=== PATIENT | male | born 1985 | race Caucasian/White ===

== ENCOUNTER → 2018-05-22 09:38 | Outpatient (CLI) | payer BC, SELFPAY ==
[2018-05-22 10:24] LABS: Hematocrit 45.2 % (41-53); Hemoglobin 15.3 g/dL (13.5-17.5); Mean Corpuscular HGB Conc 33.8 % (30-36); Mean Corpuscular Hemoglobin 29.7 PG (26-34); Mean Corpuscular Volume 87.8 fL (80-100); Platelet Count 157 X10^3/uL (150-400); Red Blood Cell Count 5.15 X10^6/uL (4.5-5.9); Red Cell Distribution Width 13.5 % (11.6-14.8); White Blood Cell Count 5.3 X10^3/uL (4.5-11.0)
== END ==
PROVIDERS: PCP Nurse Practitioner Family; Visit Provider Nurse Practitioner Family
DX: R10.32 Left lower quadrant pain (principal)
CPT/HCPCS: 36415; 85027

== ENCOUNTER → 2018-05-23 08:22 | Outpatient (CLI) | payer BC, SELFPAY ==
--- NOTE | 2018-05-23 09:21 | DI.CT.S_ITS ---
PROCEDURE: CT PELVIS W CON INDICATIONS: Left inguinal pain TECHNIQUE: After the administration of oral contrast and intravenous contrast, 5 mm thick sections acquired from the iliac crests to the symphysis. 5 mm thick coronal and sagittal reformats were acquired. For radiation dose reduction, the following was used: automated exposure control, adjustment of mA and/or kV according to patient size. COMPARISON: None. FINDINGS: Image quality: Excellent. Peritoneum and bowel: Contrast enhanced bowel loops demonstrate normal wall thickness and caliber. No free fluid or air. Mild sigmoid diverticulosis is seen, no CT evidence of acute diverticulitis. Genitourinary: Mild diffuse bladder wall thickening is seen. Nodes and vessels: No iliac, pelvic, or inguinal adenopathy. Iliac vessels demonstrate normal size and enhancement. Bones: No suspicious bony lesions. No discrete bladder wall mass. Miscellaneous: The small right inguinal hernia is seen containing fat only. IMPRESSION: 1. Small right inguinal hernia containing fat only. No left-sided hernia. No bowel obstruction. No free fluid or free air. No inguinal lymphadenopathy. 2. Mild diffuse bladder wall thickening. No discrete bladder wall mass. Cystitis cannot be excluded. Dictated by: Hernan Wood M.D. on 05/23/2018 at 10:16 Approved by: Hernan Wood M.D. on 05/23/2018 at 10:21
[2018-05-23 12:42] LABS: Alanine Aminotransferase 96 IU/L (21-72); Albumin 4.3 g/dL (3.5-5.0); Albumin Globulin Ratio 1.9 (1.0-2.8); Alkaline Phosphatase 72 U/L (38-126); Aspartate Aminotransferase 36 IU/L (17-59); BUN Creatinine Ratio 16.3 (6-22); Bilirubin Total 0.5 mg/dL (0.2-1.3); Blood Urea Nitrogen 13 mg/dL (9-20); Calcium 9.5 mg/dL (8.4-10.2); Carbon Dioxide 27 mmol/L (22-32); Chloride 100 mmol/L (98-107); Estimated Glomerular Filt Rate > 60.0 mL/min (>60); Globulin 2.3 g/dL (1.7-4.1); Glucose 79 mg/dL (70-100); HEMOLYSIS < 15 (0-50); Potassium 4.3 mmol/L (3.4-5.1); Sodium 139 mmol/L (137-145); Total Protein 6.6 g/dL (6.3-8.2)
== END ==
PROVIDERS: PCP Nurse Practitioner Family; Visit Provider Nurse Practitioner Family
DX: R10.32 Left lower quadrant pain (principal); K40.90 Unilateral inguinal hernia, without obstruction or gangrene, not specified as recurrent
CPT/HCPCS: 72193; 80053; Q9967

== ENCOUNTER 2018-06-05 11:40 | Day surgery (SDC) | payer BC, SELFPAY ==
[2018-06-04 08:13] VITALS: BMI 34.0
[2018-06-05] VITALS (9 sets, daily range): BP systolic 98–132; BP diastolic 56–87; PULSE 71–94; RESP 8–16; TEMP 36.2–37.1; O2SAT 92–97; BMI 32.5
--- NOTE | 2018-06-05 12:02 | PM.PREOP ---
Pre-operative Note Interval Note History & Physical reviewed/Exam performed by Physician: Yes Changes to H&P: No
--- NOTE | 2018-06-05 12:16 | SUR.OPER ---
Supine on padded OR bed, head on pillow, arms secured on padded arm boards at <90 degrees abduction, legs uncrossed, safety belt at thigh, tape over blanket over lower legs.
[2018-06-05] MEDS: LACTATED RINGERS 1,000 ML 42 ML IV (12:21)
[2018-06-05] MEDS: CEFAZOLIN 2 GM/100 ML FROZ.PIGGY IV (12:27)
[2018-06-05] MEDS: BUPIVACAINE 0.5% (PF) VIAL 30 ML INJ (13:01)
[2018-06-05] MEDS: LACTATED RINGERS 1,000 ML 100 ML IV (13:41)
[2018-06-05] MEDS: fentaNYL 100 MCG/2 ML INJ 50 MCG IV ×2 (14:13→14:22)
--- NOTE | 2018-06-05 14:23 | P.OP_ITS ---
Operative Date/Time/Diagnoses Date of procedure: 06/05/18 Time of procedure: 14:01 Pre-op diagnosis: Right inguinal hernia reducible Post-op diagnosis: same (Large lipoma of the cord most likely the source of findings. Also had weakness of the floor consistent with a direct hernia.) Procedure & Clinicians Procedure: Repair right inguinal hernia with plug and patch technique Same procedure as scheduled: Yes Indications: Symptomatic hernia Surgeon: Juan Stallworth Click Yes if Unassisted: Yes Anesthesia Type: General Operative Notes Findings: Large lipoma of the cord. Weakness of the floor Closure Type: primary Specimen(s): none sent Prosthetic devices, grafts, tissues, transplants, or devices: Mesh Estimated Blood Loss (mL): 15 Procedure in detail: The patient was placed supine on the operating room table and underwent general LMA anesthesia. He was prepped and draped in the usual fashion. A transverse incision was made overlying the internal ring and carried down to the level of the external oblique. The external oblique was opened parallel with its fibers through the external ring. The cord structures were elevated. The cremaster was opened proximally and search made for an indirect sac. there was a large lipoma of the cord. It was dissected off of surrounding structures and suture ligated at the level the deep epigastric vessels. Distal portion was removed. The stump was allowed to retract. I examined the remainder of the contents of the cord but could not identify an indirect sac. A small plug was placed in the defect created by the lipoma and tacked into place with interrupted 0 Ethibond suture.. The floor was examined and was found to be somewhat weakened.. A patch was placed across the floor and tacked at the pubic tubercle, the posterior lamella of the anterior rectus sheath, the ilioinguinal ligament, and superior lateral to the cord. The opening was modified as necessary to prevent tight constriction of the cord. Sutures of 0 Tycron were used to secure the mesh. The external oblique was closed with a running 3 0 Vicryl. The subcu was closed with interrupted 3 0 Vicryl. The skin was closed with a running 4 0 Vicryl subcuticular stitch and Steri-Strips. Dressing was ap plied, the patient was awakened, and the patient was taken to the recovery area in good condition. Complications: none Condition: stable Disposition: PACU Plan for aftercare: Follow-up in office
== END 2018-06-05 15:06 | disposition home or self-care (01) ==
PROVIDERS: PCP Nurse Practitioner Family; Visit Provider Specialist
PROC: (CPT 49505; principal; 2018-06-05 12:45)
DX: K40.90 Unilateral inguinal hernia, without obstruction or gangrene, not specified as recurrent (principal); D17.6 Benign lipomatous neoplasm of spermatic cord; F17.210 Nicotine dependence, cigarettes, uncomplicated
CPT/HCPCS: 49505; C1781; J0690; J1100; J2405; J2704; J3010

== ENCOUNTER → 2019-09-02 13:51 | Outpatient (CLI) | payer BC, SELFPAY ==
[2019-09-02 14:31] LABS: Add Manual Diff / Slide Review NO; Basophils Absolute Auto 100 /uL (0-100); Eosinophils Absolute Auto 200 /uL (0-450); Hematocrit 44.7 % (41-53); Hemoglobin 15.5 g/dL (13.5-17.5); Lymphocytes Absolute Auto 1700 /uL (1100-4500); Mean Corpuscular HGB Conc 34.7 % (30-36); Mean Corpuscular Hemoglobin 31.9 PG (26-34); Mean Corpuscular Volume 92.1 fL (80-100); Monocytes Absolute Auto 400 /uL (0-900); Monocytes Percent Auto 7.9 % (3-14); Neutrophils Absolute Auto 3200 /uL (1500-7000); Neutrophils Percent Auto 57.1 % (50-75); Platelet Count 179 X10^3/uL (150-400); Red Blood Cell Count 4.86 X10^6/uL (4.5-5.9); White Blood Cell Count 5.6 X10^3/uL (4.5-11.0)
[2019-09-02 14:43] LABS: Monotest Negative (Negative)
[2019-09-02 14:44] LABS: Alanine Aminotransferase 40 IU/L (<50); Albumin 4.7 g/dL (3.5-5.0); Albumin Globulin Ratio 1.7 (1.0-2.8); Alkaline Phosphatase 70 U/L (38-126); Aspartate Aminotransferase 37 IU/L (17-59); BUN Creatinine Ratio 15.6 (6-22); Bilirubin Total 0.9 mg/dL (0.2-1.3); Blood Urea Nitrogen 12 mg/dL (9-20); Calcium 9.6 mg/dL (8.4-10.2); Carbon Dioxide 28 mmol/L (22-32); Chloride 107 mmol/L (98-107); Estimated Glomerular Filt Rate > 60.0 mL/min (>60); Globulin 2.7 g/dL (1.7-4.1); Glucose 102 mg/dL (70-100); HEMOLYSIS < 15 (0-50); Potassium 4.8 mmol/L (3.4-5.1); Sodium 140 mmol/L (137-145); Total Protein 7.4 g/dL (6.3-8.2)
[2019-09-02 14:48] LABS: C-Reactive Protein Quant < 0.5 mg/dL (<1.0)
[2019-09-02 14:49] LABS: Erythrocyte Sedimentation Rate 2 MM/HR (0-15)
== END ==
PROVIDERS: PCP Nurse Practitioner Family; Referring Provider Physician Assistant; Visit Provider Physician Assistant
DX: J02.9 Acute pharyngitis, unspecified (principal); R07.0 Pain in throat
CPT/HCPCS: 36415; 80053; 84443; 85025; 85651; 86140; 86318; 87070; 87147

== ENCOUNTER → 2020-05-26 07:57 | Outpatient (CLI) | payer BC, SELFPAY ==
[2020-05-26] MEDS: COVID-19 VACC, Ad26(JANSSEN)/PF 0.5 ML IM (08:01)
== END ==
PROVIDERS: PCP Nurse Practitioner Family; Visit Provider Internal Medicine
DX: Z23 Encounter for immunization (principal)
CPT/HCPCS: 0031A; 91303

== ENCOUNTER 2022-01-11 06:29 | Emergency (ER) | payer BC, SELFPAY ==
[2022-01-11 06:37] VITALS: BP 185/89; PULSE 80; RESP 16; TEMP 36.8; O2SAT 100; BMI 35.9
--- NOTE | 2022-01-11 06:54 | ED.LOWEXIN ---
HPI - Extremity Injury (Lower) General Chief Complaint: Extremity Injury, Lower Stated Complaint: index toe on right foot had blister that popped Time Seen by Provider: 01/11/22 06:43 Source: patient Mode of arrival: Ambulatory History of Present Illness HPI Narrative: 36-year-old male nonsmoker with noncontributory medical history presents for evaluation of a blister that had developed between the great toe and 2nd toe on his right foot over the course of a work shift. He states the blister ruptured and swelling has improved, pain has improved but he wants to be sure he is at low risk for infection. He is not diabetic. He denies any fever chills nor nausea or vomiting. Related Data Home Medications Medication Instructions Recorded Confirmed pdqezwdl-akqbmpss-jaeue acid 400 2 tab PO .QD 05/21/18 10/20/19 mcg-vit K 20 mcg-lycop 300 mcg tablet (One-A-Day Men's Multivitamin) Allergies Allergy/AdvReac Type Severity Reaction Status Date / Time No Known Drug Allergies Allergy Verified 10/20/19 13:56 Review of Systems Review of Systems Narrative: GENERAL: Denies chills, fatigue, malaise, fever, sweats. HEENT: Denies sinus pain, ear pain, sore throat, difficulty swallowing, dizziness. RESPIRATORY: Denies dyspnea, cough, wheezing, hemoptysis, sputum. CARDIOVASCULAR: Denies chest pain, palpitations, orthopnea, edema, GASTROINTESTINAL: Denies nausea, vomiting, abdominal pain, diarrhea, constipation, melena. : Denies dysuria, frequency, incontinence, hematuria, urinary retention. MUSCULOSKELETAL: denies weakness, joint pain, or bony pain SKIN: See HPI NEUROLOGIC: Denies weakness, headache, numbness, change in speech, confusion, seizures, incoordination. PSYCHIATRIC: No concerning psychosocial issues. 12 point review of systems is negative except for those stated above Patient History Medical History Daily consumption of alcohol Surgical History Anesthesia Inguinal hernia (~2004) Family History Father Diabetes mellitus Heart disease Stroke Grandfather Heart disease Grandmother Cancer Grandfather Heart disease Grandmother Cancer Social History Smoking Status: Current every day smoker Tobacco: How many years used: 15 quit status: considering quitting second hand exposure: No alcohol intake: current substance use type: does not use Smoking Status: Current every day smoker alcohol intake frequency: a few times a week Substance Use Type: does not use Exam Narrative Exam Narrative: GEN: AOx3 and in mild distress EYES: Pupils are equal, round, and reactive to light and accommodation. Extraoccular muscles are intact bilaterally. There is no subconjunctival hemorrhage or exudate. CHEST: Lungs are clear to auscultation bilaterally and free of wheezes, rales, or rhonchi. Heart rate is regular rhythm, there are no murmurs, clicks, rubs, or gallops. There is no chest wall tenderness. ABD: Abdomen is soft and nontender. There is no guarding or rebound. Bowel sounds are normal in all 4 quadrants. There is no mass or organomegaly. EXT: Small ruptured blister on 2nd toe of right foot, no surrounding erythema or other drainage, no lymphangitis, very minimal swelling if any Full painless ROM of all extremities with no loss of sensation or strength. SKIN: Warm, pink, and dry. No erythema or rash Initial Vital Signs Initial Vital Signs: Vital Signs Temperature 98.2 F 01/11/22 06:37 Pulse Rate 80 01/11/22 06:37 Respiratory Rate 16 01/11/22 06:37 Blood Pressure 185/89 H 01/11/22 06:37 Pulse Oximetry 100 01/11/22 06:37 Oxygen Delivery Method 01/11/22 06:37 Course Orders Ordered: Discontinued Medications Bacitracin (Bacitracin Oint 0.9 Gm Pckt) 1 applic TOP NOW ONE Stop: 01/11/22 06:59 Last Admin: 01/11/22 07:04 Dose: 1 applic Documented By: AP Vital Signs Vital signs: Vital Signs - 8 hr 01/11/22 06:37 Temperature 98.2 F Pulse Rate 80 Respiratory Rate 16 Blood Pressure 185/89 H Pulse Oximetry 100 Oxygen Delivery Method Room Air Discharge Plan Departure Patient Disposition: Home Clinical Impression: Wound, open, foot Instructions: Skin Wound Activity Restrictions/Additional Instructions: *You have been diagnosed with [open wound right foot. As we discussed there is no sign of infection at this time, please apply Neosporin and dry bandages for the next few days while this heals.] *What to do: *Please continue to take your regular medications as directed. [ ] New medication prescriptions sent to your pharmacy: [ ] [ ] New medication written as a paper prescription [ ] No new medications given *Please follow up with your primary care provider in 2-3 days, call for an appointment. Let them know you were seen in the Emergency Department and that we ask that you be seen in follow up. We will electronically transmit a record of today's note if your PCP is in our system *Return to Emergency Department if you should have any new, worsening or concerning symptoms Prescriptions: No Action One-A-Day Men's Multivitamin 400-20-300 mcg tablet 2 tab PO .QD Referrals: Sarah Mckeon ARNP [Primary Care Provider] - Visit Report Forms: Patient Portal/API
[2022-01-11] MEDS: BACITRACIN OINT 0.9 GM PCKT 1 APPLIC TOP (07:04)
[2022-01-11 07:11] VITALS: BP 160/75; PULSE 75; RESP 16; O2SAT 100
== END 2022-01-11 07:11 | disposition home or self-care (01) ==
PROVIDERS: Emergency Provider Emergency Medicine; PCP Nurse Practitioner Family
DX: S91.301A Unspecified open wound, right foot, initial encounter (principal); X58.XXXA Exposure to other specified factors, initial encounter
CPT/HCPCS: 99282

== ENCOUNTER → 2022-03-20 11:36 | Outpatient (CLI) | payer BC, SELFPAY ==
[2022-03-20 12:56] LABS: Hematocrit 44.8 % (41-53); Hemoglobin 15.7 g/dL (13.5-17.5); Mean Corpuscular Hemoglobin 30.6 PG (26-34); Mean Corpuscular Volume 87.5 fL (80-100); Platelet Count 193 X10^3/uL (150-400); Red Blood Cell Count 5.12 X10^6/uL (4.5-5.9); Red Cell Distribution Width 13.5 % (11.6-14.8); White Blood Cell Count 5.4 X10^3/uL (4.5-11.0)
[2022-03-20 13:20] LABS: TSH w/ Reflex to FT4 1.98 uIU/mL (0.47-4.68)
[2022-03-20 13:35] LABS: Alanine Aminotransferase 46 IU/L (<50); Albumin 4.8 g/dL (3.5-5.0); Albumin Globulin Ratio 1.5 (1.0-2.8); Alkaline Phosphatase 70 U/L (38-126); Aspartate Aminotransferase 34 IU/L (17-59); BUN Creatinine Ratio 10.6 (6-22); Bilirubin Total 0.6 mg/dL (0.2-1.3); Blood Urea Nitrogen 11 mg/dL (9-20); Calcium 9.2 mg/dL (8.4-10.2); Carbon Dioxide 23 mmol/L (22-32); Chloride 105 mmol/L (98-107); Estimated Glomerular Filt Rate > 60 mL/min (>60); Globulin 3.2 g/dL (1.7-4.1); Glucose 95 mg/dL (70-100); HEMOLYSIS < 15 (0-50); Potassium 3.9 mmol/L (3.4-5.1); Sodium 144 mmol/L (137-145)
== END ==
PROVIDERS: PCP Nurse Practitioner Family; Referring Provider Nurse Practitioner Family; Visit Provider Nurse Practitioner Family
DX: I10 Essential (primary) hypertension (principal)
CPT/HCPCS: 36415; 80053; 84443; 85027

== ENCOUNTER 2022-08-28 09:24 | Emergency (ER) | payer BC, SELFPAY ==
[2022-08-28] VITALS (13 sets, daily range): BP systolic 158–216; BP diastolic 86–125; PULSE 61–84; RESP 8–23; TEMP 36.7; O2SAT 93–99; BMI 35.9
--- NOTE | 2022-08-28 09:31 | DI.RAD.S_ITS ---
PROCEDURE: XR CHEST 1V INDICATIONS: chest pain TECHNIQUE: One view of the chest was acquired. COMPARISON: None. FINDINGS: Surgical changes and devices: None. Lungs and pleura: Lungs are clear. No pleural effusions or pneumothorax. Mediastinum: Mediastinal contours appear normal. Heart size is normal. Bones and chest wall: No suspicious bony lesions. Overlying soft tissues appear unremarkable. IMPRESSION: No acute cardiopulmonary disease. Dictated by: Reyna Van M.D. on 08/28/2022 at 9:08 Approved by: Reyna Van M.D. on 08/28/2022 at 9:09
[2022-08-28 09:37] LABS: Add Manual Diff / Slide Review NO; Basophils Absolute Auto 100 /uL (0-100); Basophils Percent Auto 1.3 % (0-2); Eosinophils Absolute Auto 200 /uL (0-450); Eosinophils Percent Auto 3.1 % (2-4); Hematocrit 41.5 % (41-53); Hemoglobin 14.7 g/dL (13.5-17.5); Lymphocytes Absolute Auto 1700 /uL (1100-4500); Lymphocytes Percent Auto 34.3 % (25-40); Mean Corpuscular HGB Conc 35.3 % (30-36); Mean Corpuscular Hemoglobin 30.5 PG (26-34); Mean Corpuscular Volume 86.2 fL (80-100); Monocytes Absolute Auto 500 /uL (0-900); Monocytes Percent Auto 10.3 % (3-14); Neutrophils Absolute Auto 2500 /uL (1500-7000); Platelet Count 167 X10^3/uL (150-400); Red Blood Cell Count 4.82 X10^6/uL (4.5-5.9); Red Cell Distribution Width 12.7 % (11.6-14.8); White Blood Cell Count 4.8 X10^3/uL (4.5-11.0)
[2022-08-28] MEDS: ASPIRIN 81 MG CHEW TAB 324 MG PO (09:37)
[2022-08-28 09:45] LABS: Prothrombin Time 11.1 SECONDS (10.1-12.7)
[2022-08-28 09:47] LABS: PTT Partial Thromboplastin Tim 35 SECONDS (26-36)
[2022-08-28 09:55] LABS: Alanine Aminotransferase 42 IU/L (<50); Albumin 4.7 g/dL (3.5-5.0); Albumin Globulin Ratio 1.6 (1.0-2.8); Alkaline Phosphatase 78 U/L (38-126); Aspartate Aminotransferase 30 IU/L (17-59); BUN Creatinine Ratio 11.5 (6-22); Bilirubin Total 0.9 mg/dL (0.2-1.3); Blood Urea Nitrogen 9 mg/dL (9-20); Calcium 9.2 mg/dL (8.4-10.2); Carbon Dioxide 29 mmol/L (22-32); Chloride 101 mmol/L (98-107); Creatine Kinase 266 U/L (55-170); Estimated Glomerular Filt Rate > 60 mL/min (>60); Glucose 102 mg/dL (70-100); HEMOLYSIS < 15 (0-50); Lipase 41 U/L (23-300); Sodium 138 mmol/L (137-145); Total Protein 7.7 g/dL (6.3-8.2)
--- NOTE | 2022-08-28 10:01 | ED_ITS ---
HPI - General Adult General Chief complaint: Chest Pain Stated complaint: high BP/intense head swells T-1 Time Seen by Provider: 08/28/22 09:34 Source: patient Mode of arrival: Ambulatory History of Present Illness HPI narrative: This is a 37-year-old male with a primary hypertension and chronic alcohol use, patient presents with complaint of feeling a wish and feeling through his head and felt dizzy yesterday during a meeting, he had a similar episode twice today during the meeting as well. He states no headache, no vision changes, no chest pain or shortness of breath, no nausea or vomiting. Abdominal back or flank pain. Patient states he has been a little bit constipated lately because he is not eating as much. No swelling or skin changes. Patient states no swelling in extremities. He takes 20 mg lisinopril he did take 40 mg this morning with the direction of his physician because he was elevated 170s over 110s yesterday and was 190 range at the meeting. Patient states he is had prior hernia repair. Uses nicotine but does not smoke, does drink alcohol states quite a bit daily, no marijuana or illicit. Patient does note he had a quad shot, lactate and MiraLax today this morning. Did take his lisinopril earlier today. States he drank his normal amount of alcohol last night does not feel like he is having any withdrawal. Does note he gained a significant amount of weight in the last year has been trying to lose weight but got up to 310 lb and is now down to 95 but still attempting to lose weight. He does note a little bit of pill stuck sensation daily with he takes his lisinopril. Related Data Home Medications Medication Instructions Recorded Confirmed zuzheoti-cxmlhyaw-fartv acid 400 2 tab PO .QD 05/21/18 05/08/22 mcg-vit K 20 mcg-lycop 300 mcg tablet (One-A-Day Men's Multivitamin) ashwagandha root extract 300 mg mg PO 03/20/22 05/08/22 capsule turmeric 400 mg capsule mg PO 03/20/22 05/08/22 Previous Rx's Medication Instructions Recorded lisinopril 20 mg tablet 20 mg PO DAILY #90 tabs 05/18/22 Allergies Allergy/AdvReac Type Severity Reaction Status Date / Time No Known Drug Allergies Allergy Verified 08/28/22 09:31 Review of Systems Review of Systems ROS Unobtainable: All systems reviewed & are unremarkable except as noted in HPI and below Patient History Medical History Daily consumption of alcohol Essential hypertension Left inguinal pain Surgical History Anesthesia Inguinal hernia (~2004) Family History Father Diabetes mellitus Heart disease Stroke Grandfather Heart disease Grandmother Cancer Grandfather Heart disease Grandmother Cancer Social History Smoking Status: Current every day smoker Tobacco: How many years used: 20 Smokeless tobacco user: other (nicotine pouch) quit status: quit date established second hand exposure: No alcohol intake: current (2 drinks per day ) substance use type: does not use and marijuana (teenager ) Smoking Status: Current every day smoker tobacco type: vaping alcohol intake frequency: 3 or more drinks per day Substance Use Type: does not use Exam Narrative Exam Narrative: GENERAL: Alert and oriented x three, male in mild distress. HEENT: Head normocephalic, atraumatic, EOMI, pupils reactive, face symmetric, moist mucous membranes NECK: Supple, full range of motion CARDIOVASCULAR: Regular rate and rhythm without murmurs, rubs or gallops. No JVD. No swelling bilateral lower extremities. RESPIRATORY: Breath sounds equal bilaterally, no wheezes rales or rhonchi. ABDOMEN: Soft, nontender. Normoactive bowel sounds all 4 quadrants. No guarding or rebound, rigidity, no mass, No pulsatile mass or bruit. : No CVA tenderness EXTREMITIES: Normal range of motion, no clubbing or edema. Neurovascularly intact NEUROLOGICAL: Cranial nerves II through XII grossly intact. Moving all extremities SKIN: Warm, dry, no petechiae, no rashes or lesions. Initial Vital Signs Initial Vital Signs: Vital Signs Temperature 98.0 F 08/28/22 09:25 Pulse Rate 81 08/28/22 09:25 Respiratory Rate 12 08/28/22 09:25 Blood Pressure 213/125 H 08/28/22 09:25 Pulse Oximetry 99 08/28/22 09:25 Oxygen Delivery Method Room Air 08/28/22 09:25 Course Orders Ordered: ED Orders 08/28/22 09:31 XR chest 1V Stat 08/28/22 09:32 Complete Blood Count AUTO DIFF Stat Comprehensive Metabolic Panel Stat Lipase Stat Magnesium Stat PTT Partial Thromboplastin Alberto Stat Prothrombin Time INR Stat Troponin & CK Cardiac Panel Stat 08/28/22 09:35 EKG-12 Lead Stat 08/28/22 11:37 Trop I [Troponin I] Stat Discontinued Medications Aspirin (Aspirin 81 Mg Chew Tab) 324 mg PO NOW ONE Stop: 08/28/22 09:32 Last Admin: 08/28/22 09:37 Dose: 324 mg Documented By: MEGHANN Vital Signs Vital signs: Vital Signs - 8 hr 08/28/22 10:30 08/28/22 10:31 08/28/22 10:31 Pulse Rate 70 75 Respiratory Rate 11 L Blood Pressure 182/119 H Pulse Oximetry 97 99 08/28/22 11:00 08/28/22 11:01 08/28/22 11:01 Pulse Rate 70 74 Respiratory Rate 11 L 13 Blood Pressure 178/86 H Pulse Oximetry 96 98 08/28/22 11:30 08/28/22 11:30 08/28/22 12:14 Pulse Rate 70 Respiratory Rate 10 L Blood Pressure 169/99 H Pulse Oximetry 93 93 08/28/22 12:18 08/28/22 12:18 08/28/22 12:30 Pulse Rate 66 Respiratory Rate 10 L Blood Pressure 162/89 H 158/99 H Pulse Oximetry 98 08/28/22 12:30 Pulse Rate 61 Respiratory Rate 15 Blood Pressure Pulse Oximetry 95 Medical Decision Making Lab Data 08/28/22 09:32 08/28/22 09:32 Labs: Lab Results 08/28/22 08/28/22 08/28/22 Range/Units 09:32 09:32 09:32 WBC 4.8 (4.5-11.0) X10^3/uL RBC 4.82 (4.5-5.9) X10^6/uL Hgb 14.7 (13.5-17.5) g/dL Hct 41.5 (41-53) % MCV 86.2 (80-100) fL MCH 30.5 (26-34) PG MCHC 35.3 (30-36) % RDW 12.7 (11.6-14.8) % Plt Count 167 (150-400) X10^3/uL Neut % (Auto) 51.0 (50-75) % Lymph % (Auto) 34.3 (25-40) % Tift % (Auto) 10.3 (3-14) % Eos % (Auto) 3.1 (2-4) % Baso % (Auto) 1.3 (0-2) % Neut # (Auto) 2500 (7124-5354) /uL Lymph # (Auto) 1700 (1784-6542) /uL Tift # (Auto) 500 (0-900) /uL Eos # (Auto) 200 (0-450) /uL Baso # (Auto) 100 (0-100) /uL PT 11.1 (10.1-12.7) SECONDS INR 1.0 (0.9-1.3) APTT 35 (26-36) SECONDS Sodium 138 (137-145) mmol/L Potassium 4.0 (3.4-5.1) mmol/L Chloride 101 (98-107) mmol/L Carbon Dioxide 29 (22-32) mmol/L BUN 9 (9-20) mg/dL Creatinine 0.78 (0.66-1.25) mg/dL Estimated GFR > 60 (>60) mL/min BUN/Creatinine Ratio 11.5 (6-22) Glucose 102 H (70-100) mg/dL Calcium 9.2 (8.4-10.2) mg/dL Magnesium 2.0 (1.6-2.3) mg/dL Total Bilirubin 0.9 (0.2-1.3) mg/dL AST 30 (17-59) IU/L ALT 42 (<50) IU/L Alkaline Phosphatase 78 (38-126) U/L Total Creatine Kinase 266 H (55-170) U/L Troponin I < 0.012 (0.01-0.034) ng/mL Total Protein 7.7 (6.3-8.2) g/dL Albumin 4.7 (3.5-5.0) g/dL Globulin 3.0 (1.7-4.1) g/dL Albumin/Globulin Ratio 1.6 (1.0-2.8) Lipase 41 (23-300) U/L 08/28/22 Range/Units 11:37 WBC (4.5-11.0) X10^3/uL RBC (4.5-5.9) X10^6/uL Hgb (13.5-17.5) g/dL Hct (41-53) % MCV (80-100) fL MCH (26-34) PG MCHC (30-36) % RDW (11.6-14.8) % Plt Count (150-400) X10^3/uL Neut % (Auto) (50-75) % Lymph % (Auto) (25-40) % Tift % (Auto) (3-14) % Eos % (Auto) (2-4) % Baso % (Auto) (0-2) % Neut # (Auto) (9912-0579) /uL Lymph # (Auto) (6933-6176) /uL Tift # (Auto) (0-900) /uL Eos # (Auto) (0-450) /uL Baso # (Auto) (0-100) /uL PT (10.1-12.7) SECONDS INR (0.9-1.3) APTT (26-36) SECONDS Sodium (137-145) mmol/L Potassium (3.4-5.1) mmol/L Chloride (98-107) mmol/L Carbon Dioxide (22-32) mmol/L BUN (9-20) mg/dL Creatinine (0.66-1.25) mg/dL Estimated GFR (>60) mL/min BUN/Creatinine Ratio (6-22) Glucose (70-100) mg/dL Calcium (8.4-10.2) mg/dL Magnesium (1.6-2.3) mg/dL Total Bilirubin (0.2-1.3) mg/dL AST (17-59) IU/L ALT (<50) IU/L Alkaline Phosphatase (38-126) U/L Total Creatine Kinase (55-170) U/L Troponin I < 0.012 (0.01-0.034) ng/mL Total Protein (6.3-8.2) g/dL Albumin (3.5-5.0) g/dL Globulin (1.7-4.1) g/dL Albumin/Globulin Ratio (1.0-2.8) Lipase (23-300) U/L Imaging Data Chest x-ray: Radiologist's Impression: [address] [address] XRay Report Signed Patient: Александр Leung MR#: [id number] : 1985 Acct:[id number] Age/Sex: 37 / M Date of Service: 08/28/22 Loc: ED Accession Number: [id number] ?? Procedure: XR chest 1V Ordering Provider: Viktoriya Boyd D.O. PROCEDURE:? XR CHEST 1V ? INDICATIONS:? chest pain ? TECHNIQUE:? One view of the chest was acquired.? ? COMPARISON:? None. ? FINDINGS:? ? Surgical changes and devices:? None.? ? Lungs and pleura:? Lungs are clear.? No pleural effusions or pneumothorax.? ? Mediastinum:? Mediastinal contours appear normal.? Heart size is normal.? ? Bones and chest wall:? No suspicious bony lesions.? Overlying soft tissues appear unremarkable.? ? IMPRESSION:? No acute cardiopulmonary disease.? ? ? Dictated by: Reyna Van M.D. on 08/28/2022 at 9:08 ? ? Approved by: Reyna Van M.D. on 08/28/2022 at 9:09?? ECG Data Attestation: I personally reviewed and interpreted this ECG as follows: Prior ECG tracings: not available for review Interpretation: Sinus rhythm, left axis deviation, rate of 74 NE 172 QRS of [address]TC [address] No acute [address] changes. No prior for comparison. EKG 2. Sinus rhythm rate of 64 NE 170 QRS of [address]TC [address] No acute ST changes appreciated. [facility] Narrative Medical decision making narrative: This is a 37-year-old male who presents with complaint of elevated blood pre ssure he felt a del cid in his said and sort of dizzy yesterday and today no pain no vision changes no neurologic changes. Patient was 160s yesterday woke up 150/110 this morning 200 initially has been trending down to 170s, patient states he was recently found to have elevated blood pressure he is had quite a bit of weight gain during COVID and is starting to lose weight but gained about 50 lb total. He has been on lisinopril 20 mg yesterday he took an additional tablet for 40 total. Patient states he does occasionally have a scratch or tickle in his chest or throat after he takes his lisinopril but it does not bother him much. He denies any other chest pain shortness of breath or other sy mptoms. Patient's labs do not show any acute changes, EKG and chest x-ray are negative troponin was repeated is still negative. Patient's blood pressure has been trending down words he took 40 mg total lisinopril again this morning so discussed with patient and probably increase his lisinopril to 40 mg daily, have blood pressure check in the short term with his primary care. He also did a quad shot latte today which probably did not help his symptoms he also uses nicotine and quite a bit of alcohol and we discussed this may also contribute to his blood pressure issues. Blood pressure prior to discharge is 158/99. Discussed return precautions all questions answered. Discharge Plan Departure Patient Disposition: Home Clinical Impression: Hypertension Activity Restrictions/Additional Instructions: Follow-up with your physician for recheck. Your blood pressure did have some improvement here in the department but is still some elevated I would recommend that you continue to take the new dose of 40 mg of lisinopril daily. I would also decrease your caffeine intake and likely nicotine and alcohol consumption which may also help. Continuing with weight loss will also likely help your blood pressure and good job with your progress so far. I hope you continue to feel well, please return for any chest pain, shortness of breath, headaches, vision changes, nausea vomiting, new swelling in her extremities or other new or concerning changes. Prescriptions: No Action One-A-Day Men's Multivitamin 400-20-300 mcg tablet 2 tab PO .QD lisinopril 20 mg tablet 20 mg PO DAILY Qty: 90 1RF ashwagandha root extract 300 mg capsule PO turmeric 400 mg capsule PO Referrals: Carol Chand DO [Primary Care Provider] - Stand Alone Forms: Patient Portal/API, Work Release Note
[2022-08-28 10:07] LABS: Troponin I < 0.012 ng/mL (0.01-0.034)
[2022-08-28 12:19] LABS: Troponin I < 0.012 ng/mL (0.01-0.034)
== END 2022-08-28 12:55 | disposition home or self-care (01) ==
PROVIDERS: Emergency Provider Emergency Medicine; PCP Family Medicine
DX: I10 Essential (primary) hypertension (principal); R07.9 Chest pain, unspecified; S09.90XA Unspecified injury of head, initial encounter
CPT/HCPCS: 36415; 71045; 80053; 82550; 83690; 83735; 84484; 85025; 85610; 85730; 93005; 99284

== ENCOUNTER → 2022-11-24 08:47 | Outpatient (CLI) | payer BC, SELFPAY ==
[2022-12-06 12:37] LABS: Aldosterone/Renin Activity Rat 12.8
== END ==
PROVIDERS: PCP Family Medicine; Referring Provider Family Medicine; Visit Provider Family Medicine
DX: I16.0 Hypertensive urgency (principal); E66.9 Obesity, unspecified; Z68.37 Body mass index [BMI] 37.0-37.9, adult
CPT/HCPCS: 36415; 82088; 84244

== ENCOUNTER → 2023-02-26 06:20 | Outpatient (CLI) | payer BC, SELFPAY ==
[2023-02-26 08:25] LABS: Hemoglobin A1C% w Est Avg Glu 5.3 % (4.0-6.0)
[2023-02-26 08:26] LABS: Creatinine Urine Random 22.7 mg/dL
[2023-02-26 08:33] LABS: Cholesterol 194 mg/dL (140-199); HDL Cholesterol 41 mg/dL (40-60); LDL Cholesterol Calculated 137 mg/dL (<100); Triglycerides 81 mg/dL (35-150)
[2023-02-26 19:59] LABS: Microalbumin Urine Random < 0.6 mg/dL (0-1.6)
== END ==
LOC: LAB 06:21
PROVIDERS: PCP Family Medicine; Referring Provider Family Medicine; Visit Provider Family Medicine
DX: R73.9 Hyperglycemia, unspecified (principal); E66.9 Obesity, unspecified; I10 Essential (primary) hypertension; R03.0 Elevated blood-pressure reading, without diagnosis of hypertension; Z68.37 Body mass index [BMI] 37.0-37.9, adult
CPT/HCPCS: 36415; 80061; 82043; 82570; 83036

== ENCOUNTER → 2024-01-14 09:27 | Outpatient (CLI) | payer BC, SELFPAY ==
[2024-01-14 11:40] LABS: Alanine Aminotransferase 35 IU/L (<50); Albumin 4.3 g/dL (3.5-5.0); Albumin Globulin Ratio 1.8 (1.0-2.8); Alkaline Phosphatase 66 U/L (38-126); Aspartate Aminotransferase 33 IU/L (17-59); BUN Creatinine Ratio 15.4 (6-22); Bilirubin Total 1.1 mg/dL (0.2-1.3); Blood Urea Nitrogen 12 mg/dL (9-20); Calcium 9.2 mg/dL (8.4-10.2); Carbon Dioxide 25 mmol/L (22-32); Chloride 106 mmol/L (98-107); Cholesterol 190 mg/dL (140-199); Estimated Glomerular Filt Rate > 60 mL/min (>60); Globulin 2.4 g/dL (1.7-4.1); Glucose 108 mg/dL (70-100); HDL Cholesterol 57 mg/dL (40-60); HEMOLYSIS < 15 (0-50); LDL Cholesterol Calculated 115 mg/dL (<100); Sodium 139 mmol/L (137-145); Total Protein 6.7 g/dL (6.3-8.2); Triglycerides 90 mg/dL (35-150)
[2024-01-14 11:44] LABS: High Sensitivity CRP - Cardiac 4.1 mg/L (1.0-3.0)
[2024-01-14 12:01] LABS: Hemoglobin A1C% w Est Avg Glu 5.3 % (4.0-6.0)
== END ==
PROVIDERS: PCP Family Medicine; Referring Provider Family Medicine; Visit Provider Family Medicine
DX: I10 Essential (primary) hypertension (principal); E66.9 Obesity, unspecified; E78.5 Hyperlipidemia, unspecified; R73.9 Hyperglycemia, unspecified; N46.9 Male infertility, unspecified; Z68.37 Body mass index [BMI] 37.0-37.9, adult; Z87.898 Personal history of other specified conditions
CPT/HCPCS: 36415; 80053; 80061; 82672; 83036; 84402; 84403; 86140